=== PATIENT | male | born 1970 | race Two or more races ===

== ENCOUNTER 2023-12-25 20:53 | Emergency (ER) | payer OTHER ==
[~2023-12-25] VITALS: Ht 172.7 cm; Wt 83.9 kg
[2023-12-25 20:53] VITALS: TEMP 98.2
[2023-12-25] MEDS ORDERED: IBUP-1955 PO (23:17)
[2023-12-25] MEDS ORDERED: ACET-2605 PO (23:17)
[2023-12-25 23:29] VITALS: BP 138/89; O2SAT 99
== END 2023-12-25 23:35 | disposition home or self-care (01) ==
LOC: ER 20:54
DX: R68.84 Jaw pain (principal); R51.9 Headache, unspecified; Y04.0XXA Assault by unarmed brawl or fight, initial encounter; Y93.89 Activity, other specified; Y92.89 Other specified places as the place of occurrence of the external cause; Y99.8 Other external cause status
CPT/HCPCS: 70450-TC; 70486-TC